=== PATIENT | male | born 1950 | race Caucasian/White ===

== ENCOUNTER 2017-01-20 16:02 | Emergency (ER) | payer MEDICAID ==
[2017-01-20 16:08] VITALS: RESP 16; TEMP 98.2
--- NOTE | 2017-01-20 16:42 | EDPHY ---
H & P Time Seen by Provider: 01/20/17 16:27 HPI/ROS: Chief complaint. Needs blood test HPI. 66-year-old male with history of bipolar illness sent here by [facility] for medical clearance. He has been evaluated by [facility] and they want to admit him to [facility]. However patient needed blood work and urine tox screen. Patient denies suicide ideation or homicide ideation. He lives at [facility]. He denies fever, cough, shortness of breath, chest discomfort, vomiting or diarrhea. Apparently [facility] feels that the patient is gravely disabled. He was apparently unable to urinate at [facility] and tells me that he has not been drinking fluids for the last day or 2. ROS Constitutional. no fever/chills, no weakness Eyes. no problems with vision ENT. no sore throat, no nasal drainage Cardiovascular. no chest pain Respiratory. no shortness of breath, no cough Abdominal. no abdominal pain, no nausea/vomiting, no diarrhea . no problems urinating MS. no calf pain/swelling, no neck/back pain, no joint pain Skin. no rash Lymph. no swollen glands Neuro. no headache, no dizziness, no difficulty walking or with speech Past Medical/Surgical History: Bipolar illness Social History: Single, nonsmoker, no alcohol Smoking Status: Former smoker Physical Exam: General Appearance: Alert well-developed male no distress vital signs are stable Eyes: Pupils equal and round no pallor or injection. ENT, Mouth: Mucous membranes are moist. Respiratory: There are no retractions, lungs are clear to auscultation. Cardiovascular: Regular rate and rhythm. Gastrointestinal: Abdomen is soft and nontender, no masses, bowel sounds normal. Neurological: Awake and alert, sensory and motor exams grossly normal. Skin: Warm and dry, no rashes. Musculoskeletal: Neck is supple nontender. Extremities symmetrical, full range of motion. Psychiatric: Patient is oriented X 3, there is no agitation. Constitutional: Initial Vital Signs Temperature (C) 36.8 C 01/20/17 16:05 Heart Rate 67 01/20/17 16:05 Respiratory Rate 16 01/20/17 16:05 Blood Pressure 109/87 H 01/20/17 16:05 O2 Sat (%) 98 01/20/17 16:05 O2 Delivery Mode Room Air Allergies/Adverse Reactions: Penicillins Allergy (Verified 06/12/16 09:26) Home Medications: Medication Instructions Recorded Cyanocobalamin [Vitamin B12 1,000 mcg IM Q30D 06/12/16 1000MCG/ML (*)] OLANZapine [Zyprexa] 15 mg PO HS 06/12/16 QUEtiapine FUMARATE [Seroquel 100 100 mg PO HS #0 tab 06/17/16 mg (*)] Medical Decision Making ED Course/Re-evaluation: Re-evaluation at 7:30 p.m.. Patient is stable. He is drinking fluids without vomiting. He is cleared medically. Patient has been accepted by [facility] for admission to [facility]. He will go by [facility]. Differential Diagnosis: I think the elevated BUN is secondary to him not drinking fluids. He has a normal creatinine and I do not think he has acute renal failure. He is gravely disabled and will require admission - Data Points Laboratory Results: Laboratory Results 01/20/17 16:45 01/20/17 16:45 01/20/17 01/20/17 01/20/17 18:40 16:45 16:45 WBC 4.41 10^3/uL 10^3/uL (3.80-9.50) RBC 4.81 10^6/uL 10^6/uL (4.40-6.38) Hgb 14.4 g/dL g/dL (13.7-17.5) Hct 43.9 % % (40.0-51.0) MCV 91.3 fL fL (81.5-99.8) MCH 29.9 pg pg (27.9-34.1) MCHC 32.8 g/dL g/dL (32.4-36.7) RDW 14.8 % % (11.5-15.2) Plt Count 166 10^3/uL 10^3/uL (150-400) MPV 11.3 fL fL (8.7-11.7) Neut % (Auto) 67.5 % % (39.3-74.2) Lymph % (Auto) 24.3 % % (15.0-45.0) Rich % (Auto) 7.5 % % (4.5-13.0) Eos % (Auto) 0.0 % L % (0.6-7.6) Baso % (Auto) 0.5 % % (0.3-1.7) Nucleat RBC Rel Count 0.0 % % (0.0-0.2) Absolute Neuts (auto) 2.98 10^3/uL 10^3/uL (1.70-6.50) Absolute Lymphs (auto) 1.07 10^3/uL 10^3/uL (1.00-3.00) Absolute Monos (auto) 0.33 10^3/uL 10^3/uL (0.30-0.80) Absolute Eos (auto) 0.00 10^3/uL L 10^3/uL (0.03-0.40) Absolute Basos (auto) 0.02 10^3/uL 10^3/uL (0.02-0.10) Absolute Nucleated RBC 0.00 10^3/uL 10^3/uL (0-0.01) Immature Gran % 0.2 % % (0.0-1.1) Immature Gran # 0.01 10^3/uL 10^3/uL (0.00-0.10) Sodium 144 mEq/L mEq/L (134-144) Potassium 4.1 mEq/L mEq/L (3.5-5.2) Chloride 107 mEq/L mEq/L (97-110) Carbon Dioxide 24 mEq/l mEq/l (22-31) Anion Gap 13 mEq/L mEq/L (8-16) BUN 48 mg/dL H mg/dL (7-23) Creatinine 1.3 mg/dL mg/dL (0.7-1.3) Estimated GFR 56 Glucose 97 mg/dL mg/dL (70-100) Calcium 10.2 mg/dL mg/dL (8.5-10.4) Urine Opiates Screen NEGATIVE (NEGATIVE) Acetaminophen < 10 mcg/mL L mcg/mL (10.0-30.0) Urine Barbiturates NEGATIVE (NEGATIVE) Ur Phencyclidine Scrn NEGATIVE (NEGATIVE) Ur Amphetamine Screen NEGATIVE (NEGATIVE) U Benzodiazepines Scrn NEGATIVE (NEGATIVE) Urine Cocaine Screen NEGATIVE (NEGATIVE) U Marijuana (THC) Screen NEGATIVE (NEGATIVE) Ethyl Alcohol < 10 mg/dL mg/dL (0-10) Medications Given: Discontinued Medications Sodium Chloride (Ns) 1,000 mls @ 0 mls/hr IV ONCE ONE PRN Reason: Wide Open Stop: 01/20/17 17:30 Last Admin: 01/20/17 17:30 Dose: 1,000 mls Departure - Departure Disposition: Home, Routine, Self-Care Clinical Impression: Gravely disabled Condition: Fair Instructions: Dehydration (ED) Additional Instructions: Drink plenty of fluids and stay hydrated. Go to [facility] by taxi without fail. Return for any worsening symptoms Recheck by Dr. Arias in 2-3 days for repeat blood evaluation for dehydration Referrals: Morales Arias MD [Primary Care Provider] - 2-3 days, call for appt.
[2017-01-20 17:10] LABS: % IMMATURE GRANULYOCYTES 0.2 % (0.0-1.1); ABSOLUTE IMMATURE GRANULOCYTES 0.01 10^3/uL (0.00-0.10); ADD DIFF? NO; ADD MORPH? NO; ADD SCAN? NO; ANION GAP 13 mEq/L (8-16); ATYPICAL LYMPHOCYTE FLAG 20 (0-99); CALCIUM 10.2 mg/dL (8.5-10.4); CARBON DIOXIDE 24 mEq/l (22-31); CHLORIDE 107 mEq/L (97-110); CREATININE 1.3 mg/dL (0.7-1.3); ETHANOL SERUM < 10 mg/dL (0-10); FRAGMENT RBC FLAG 0 (0-99); GLOMERULAR FILTRATION RATE 56; GLUCOSE 97 mg/dL (70-100); HEMATOCRIT 43.9 % (40.0-51.0); HEMOGLOBIN 14.4 g/dL (13.7-17.5); LEFT SHIFT FLG 0 (0-99); LIPEMIA HEMOLYSIS FLAG 80 (0-99); MEAN CELL HEMOGLOBIN 29.9 pg (27.9-34.1); MEAN CELL HEMOGLOBIN CONCENTR. 32.8 g/dL (32.4-36.7); MEAN CELL VOLUME 91.3 fL (81.5-99.8); MEAN PLATELET VOLUME 11.3 fL (8.7-11.7); PLATELET CLUMPS FLAG 0 (0-99); PLATELET COUNT 166 10^3/uL (150-400); POTASSIUM 4.1 mEq/L (3.5-5.2); RED BLOOD CELL COUNT 4.81 10^6/uL (4.40-6.38); RED CELL DISTRIBUTION WIDTH 14.8 % (11.5-15.2); SODIUM 144 mEq/L (134-144)
[2017-01-20] MEDS ORDERED: NS 1,000 ML IV ONE (17:29)
[2017-01-20 20:19] VITALS: BP 112/71; PULSE 74; O2SAT 96
== END 2017-01-20 20:19 | disposition home or self-care (01) ==
DX: F79 Unspecified intellectual disabilities (principal); Z87.891 Personal history of nicotine dependence
CPT/HCPCS: 80305; G0480

== ENCOUNTER 2017-03-11 23:48 | Emergency (ER) | payer MEDICAID ==
[2017-03-12] MEDS ORDERED: fentaNYL 100 MCG/2 ML INJ IVP ONE (00:07)
[2017-03-12 00:21] LABS: % IMMATURE GRANULYOCYTES 0.2 % (0.0-1.1); ABSOLUTE IMMATURE GRANULOCYTES 0.01 10^3/uL (0.00-0.10); ADD DIFF? NO; ADD MORPH? NO; ADD SCAN? NO; ATYPICAL LYMPHOCYTE FLAG 20 (0-99); FRAGMENT RBC FLAG 10 (0-99); HEMATOCRIT 35.6 % (40.0-51.0); HEMOGLOBIN 11.8 g/dL (13.7-17.5); LEFT SHIFT FLG 0 (0-99); LIPEMIA HEMOLYSIS FLAG 80 (0-99); MEAN CELL HEMOGLOBIN 30.2 pg (27.9-34.1); MEAN CELL HEMOGLOBIN CONCENTR. 33.1 g/dL (32.4-36.7); MEAN PLATELET VOLUME 12.3 fL (8.7-11.7); PLATELET CLUMPS FLAG 70 (0-99); PLATELET COUNT 192 10^3/uL (150-400); RED BLOOD CELL COUNT 3.91 10^6/uL (4.40-6.38); RED CELL DISTRIBUTION WIDTH 13.7 % (11.5-15.2)
[2017-03-12 00:24] VITALS: RESP 16; TEMP 96.8
[2017-03-12] MEDS ORDERED: IOPAMIDOL (ISOVUE-300) 100 ML BTL ONE (00:33)
[2017-03-12 00:38] LABS: ALANINE AMINOTRANSFERASE 27 IU/L (21-72); ALBUMIN 3.8 g/dL (3.5-5.0); ALKALINE PHOSPHATASE 59 IU/L (38-126); ANION GAP 11 mEq/L (8-16); ASPARTATE AMINOTRANSFERASE 18 IU/L (17-59); BILIRUBIN,TOTAL 0.4 mg/dL (0.1-1.4); BILIRUBIN-CONJUGATED 0.2 mg/dL (0.0-0.5); BILIRUBIN-UNCONJUGATED 0.2 mg/dL (0.0-1.1); CALCIUM 10.4 mg/dL (8.5-10.4); CARBON DIOXIDE 23 mEq/l (22-31); CHLORIDE 107 mEq/L (97-110); CREATININE 1.6 mg/dL (0.7-1.3); GLOMERULAR FILTRATION RATE 44; GLUCOSE 84 mg/dL (70-100); POTASSIUM 4.2 mEq/L (3.5-5.2); SODIUM 141 mEq/L (134-144); TOTAL PROTEIN 6.8 g/dL (6.3-8.2)
--- NOTE | 2017-03-12 02:25 | EDPHY ---
H & P Stated Complaint: BIBA for abd pain, from [facility]. living Time Seen by Provider: 03/11/17 23:53 HPI/ROS: Chief Complaint: Abdominal pain HPI: 66-year-old male with past medical history of chronic renal insufficiency , schizoaffective disorder presenting from assisted living environment complaining of abdominal pain which began worsening this evening. No nausea or vomiting. No diarrhea. Has had some constipation. No fever or chills. No urinary symptoms. No chest pain or shortness of breath. Pain is about a 5/10. There are no aggravating or alleviating factors. ROS: 10 point Review of Systems is negative except as noted in the HPI. PMH: Chronic renal insufficiency, schizoaffective disorder Social History: No smoking, no alcohol, no recreational drug use Family History: non-contributory Physical Exam: Gen: Awake, Alert, No Distress HEENT: Nose: no rhinorrhea Eyes: PERRLA, EOMI Mouth: Moist mucosa Neck: Supple, no JVD Chest: nontender, lungs clear to auscultation Heart: S1, S2 normal, no murmur Abd: Soft, moderate left lower quadrant tenderness without rebound or guarding Back: no CVA tenderness, no midline tenderness Ext: no edema, non-tender Skin: no rash Neuro: CN II-XII intact, Sensation grossly intact, Strength 5/5 in bilateral upper and lower extremities - Personal History Current Tetanus/Diphtheria Vaccine: Unsure Current Tetanus Diphtheria and Acellular Pertussis (TDAP): Unsure - Medical/Surgical History Hx Asthma: No Hx Chronic Respiratory Disease: No Hx Diabetes: No Hx Cardiac Disease: No Hx Renal Disease: No Hx Cirrhosis: No Hx Alcoholism: No Hx HIV/AIDS: No Hx Splenectomy or Spleen Trauma: No Other PMH: bipolar, chronic kidney disease, B12 deficiency anemia, BPH - Social History Smoking Status: Former smoker Constitutional: Initial Vital Signs Temperature (C) 36.0 C 03/12/17 00:20 Heart Rate 55 L 03/12/17 00:20 Respiratory Rate 16 03/12/17 00:20 Blood Pressure 134/79 H 03/12/17 00:20 O2 Sat (%) 94 03/12/17 00:20 O2 Delivery Mode Room Air Allergies/Adverse Reactions: Penicillins Allergy (Verified 03/12/17 00:11) Home Medications: Medication Instructions Recorded Cyanocobalamin [Vitamin B12 1,000 mcg IM Q30D 06/12/16 1000MCG/ML (*)] OLANZapine [Zyprexa] 15 mg PO HS 06/12/16 QUEtiapine FUMARATE [Seroquel 100 100 mg PO HS #0 tab 06/17/16 mg (*)] Miralax 17 gm (*) 03/12/17 Proscar 5 MG (*) 03/12/17 Medical Decision Making - Diagnostics Imaging Results: CT scan of the abdomen pelvis shows severe constipation with distended rectum with a small amount of free fluid. Interpreted by Dr. Burgess. Imaging: Discussed imaging studies w/ automotive title clerk Radiologist ED Course/Re-evaluation: 66-year-old male presenting with abdominal pain he has got likely fecal impaction with a distended rectum. White count is normal. He does have his chronic renal insufficiency but no other acute changes. Is patient has had a [employer] soapsuds enema with large stool. This relieved his presenting complaint. Is otherwise well-appearing. Will discharge back to his residence with instructions follow up with primary care physician. - Data Points Laboratory Results: Laboratory Results 03/12/17 00:08 03/12/17 00:08 03/12/17 03/12/17 00:08 00:08 WBC 5.40 10^3/uL 10^3/uL (3.80-9.50) RBC 3.91 10^6/uL L 10^6/uL (4.40-6.38) Hgb 11.8 g/dL L g/dL (13.7-17.5) Hct 35.6 % L % (40.0-51.0) MCV 91.0 fL fL (81.5-99.8) MCH 30.2 pg pg (27.9-34.1) MCHC 33.1 g/dL g/dL (32.4-36.7) RDW 13.7 % % (11.5-15.2) Plt Count 192 10^3/uL 10^3/uL (150-400) MPV 12.3 fL H fL (8.7-11.7) Neut % (Auto) 49.1 % % (39.3-74.2) Lymph % (Auto) 41.1 % % (15.0-45.0) [place] % (Auto) 8.7 % % (4.5-13.0) Eos % (Auto) 0.2 % L % (0.6-7.6) Baso % (Auto) 0.7 % % (0.3-1.7) Nucleat RBC Rel Count 0.0 % % (0.0-0.2) Absolute Neuts (auto) 2.65 10^3/uL 10^3/uL (1.70-6.50) Absolute Lymphs (auto) 2.22 10^3/uL 10^3/uL (1.00-3.00) Absolute Monos (auto) 0.47 10^3/uL 10^3/uL (0.30-0.80) Absolute Eos (auto) 0.01 10^3/uL L 10^3/uL (0.03-0.40) Absolute Basos (auto) 0.04 10^3/uL 10^3/uL (0.02-0.10) Absolute Nucleated RBC 0.00 10^3/uL 10^3/uL (0-0.01) Immature Gran % 0.2 % % (0.0-1.1) Immature Gran # 0.01 10^3/uL 10^3/uL (0.00-0.10) Sodium 141 mEq/L mEq/L (134-144) Potassium 4.2 mEq/L mEq/L (3.5-5.2) Chloride 107 mEq/L mEq/L (97-110) Carbon Dioxide 23 mEq/l mEq/l (22-31) Anion Gap 11 mEq/L mEq/L (8-16) BUN 41 mg/dL H mg/dL (7-23) Creatinine 1.6 mg/dL H mg/dL (0.7-1.3) Estimated GFR 44 Glucose 84 mg/dL mg/dL (70-100) Calcium 10.4 mg/dL mg/dL (8.5-10.4) Total Bilirubin 0.4 mg/dL mg/dL (0.1-1.4) Conjugated Bilirubin 0.2 mg/dL mg/dL (0.0-0.5) Unconjugated Bilirubin 0.2 mg/dL mg/dL (0.0-1.1) AST 18 IU/L IU/L (17-59) ALT 27 IU/L IU/L (21-72) Alkaline Phosphatase 59 IU/L IU/L (38-126) Total Protein 6.8 g/dL g/dL (6.3-8.2) Albumin 3.8 g/dL g/dL (3.5-5.0) Lipase 94.0 IU/L IU/L (23-300) Departure - Departure Disposition: Home, Routine, Self-Care Clinical Impression: Constipation Condition: Good Instructions: Constipation (ED) Additional Instructions: Follow up with primary care physician in 2-3 days for re-evaluation. Return to the emergency department for increasing abdominal pain, fevers, chills , nausea, vomiting, or any other concerns. Referrals: Morales Arias MD [Primary Care Provider] - As per Instructions
[2017-03-12 02:57] VITALS: BP 116/76; PULSE 53; O2SAT 97
== END 2017-03-12 03:11 | disposition home or self-care (01) ==
LOC: EDUNIT#
DX: K59.00 Constipation, unspecified (principal); Z87.891 Personal history of nicotine dependence
CPT/HCPCS: Q9967

== ENCOUNTER 2017-03-27 08:32 | Day surgery (SDC) | payer MEDICAID ==
[2017-03-27] MEDS ORDERED: LIDOCAINE 1% 2 ML INJ ID PRN (09:15)
[2017-03-27] MEDS ORDERED: LR 1,000 ML IV ONE (09:15)
[2017-03-27] MEDS ORDERED: NS 1,000 ML IV ONE (09:27)
[2017-03-27 09:38] VITALS: PULSE 63
--- NOTE | 2017-03-27 10:00 | PDGENHP ---
History & Physical Chief Complaint: hx of polyps History of Present Illness: hx polyps Pertinent Past, Social, Family History: reviewed Relevant Physical Exam: nad Cardiorespiratory Assessment: rrr. ctab
[2017-03-27] MEDS ORDERED: ONDANSETRON 4 MG/2 ML VIAL IVP PRN (10:24)
[2017-03-27] MEDS ORDERED: ACETAMINOPHEN 500 MG TAB PO PRN (10:24)
[2017-03-27] MEDS ORDERED: fentaNYL 100 MCG/2 ML INJ IVP PRN (10:24)
[2017-03-27] MEDS ORDERED: NALOXONE HCL 0.4 MG/ML INJ IVP PRN (10:24)
--- NOTE | 2017-03-27 10:29 | PDANEPAE ---
ANE History of Present Illness Colonoscopy ANE Past Medical History - Cardiovascular History Hx Hypertension: No Hx Arrhythmias: No Hx Chest Pain: No Hx Coronary Artery / Peripheral Vascular Disease: No Hx CHF / Valvular Disease: No Hx Palpitations: No - Pulmonary History Hx COPD: No Hx Asthma/Reactive Airway Disease: No Hx Recent Upper Respiratory Infection: No Hx Oxygen in Use at Home: No Hx Sleep Apnea: No - Neurologic History Hx Cerebrovascular Accident: No Hx Seizures: No Hx Dementia: Yes Neurologic History Comment: PRE DIAGNOSIS - Endocrine History Hx Diabetes: No - Renal History Hx Renal Disorders: Yes - Liver History Hx Hepatic Disorders: No - Neurological & Psychiatric Hx Hx Neurological and Psychiatric Disorders: Yes Neurological / Psychiatric History Comment: BIPOLAR - Cancer History Hx Cancer: No - Congenital Disorder History Hx Congenital Disorders: No - GI History Hx Gastrointestinal Disorders: Yes Gastrointestinal History Comment: SEVERE CONSTIPATED - Chronic Pain History Chronic Pain: No ANE Review of Systems Review of systems is: negative - Exercise capacity METS (RN): 1 METS ANE Patient History - Allergies Allergies/Adverse Reactions: Penicillins Allergy (Verified 03/12/17 00:11) - Home Medications Home Medications: Cyanocobalamin [Vitamin B12 1000MCG/ML (*)] 1,000 mcg IM Q30D 06/12/16 [Last Taken Unknown] OLANZapine [Zyprexa] 15 mg PO HS 06/12/16 [Last Taken 03/26/17] Miralax 17 gm (*) 03/12/17 [Last Taken 03/22/17] Proscar 5 MG (*) 03/12/17 [Last Taken 03/26/17] - NPO status NPO Since - Liquids (Date): 03/27/17 NPO Since - Liquids (Time): 22:00 NPO Since - Solids (Date): 03/26/17 NPO Since - Solids (Time): 08:00 - Smoking Hx Smoking Status: Former smoker ANE Labs/Vital Signs - Vital Signs Blood Pressure: 118/78 Heart Rate: 63 Respiratory Rate: 18 O2 Sat (%): 97 Height: 177.8 cm Weight: 49.895 kg ANE Physical Exam - Airway Neck exam: FROM Mallampati Score: Class 2 Mouth exam: normal dental/mouth exam - Pulmonary Pulmonary: clear to auscultation - Cardiovascular Cardiovascular: regular rate and rhythym - ASA Status ASA Status: II ANE Anesthesia Plan Anesthesia Plan: GA with mask
[2017-03-27] MEDS ORDERED: PROPOFOL/EMULSION 500 MG/50 ML BOTTLE IV ONE (11:21)
[2017-03-27] MEDS ORDERED: LIDOCAINE 2% 5 ML SDV ONE (11:21)
[2017-03-27] MEDS ORDERED: epHEDrine SULFATE 10 MG/ML SYR ONE ×2 (11:43)
[2017-03-27 12:32] VITALS: TEMP 97.5
[2017-03-27 12:33] VITALS: RESP 16
--- NOTE | 2017-03-27 12:53 | GPN ---
[f rep st] PROCEDURE NOTE DATE OF PROCEDURE: 03/27/2017 PROCEDURE: Colonoscopy. INDICATION: Personal history of polyps and lower abdominal pain and feeling of tightness. CONSENT: Informed consent obtained from the patient prior to the procedure after an explanation of risks, benefits, and alternatives. MEDICATIONS GIVEN: Propofol per Anesthesia. DESCRIPTION OF EXAM: After adequate sedation was achieved, the scope was advanced through the anal orifice and as far as the cecum and terminal ilium. The patient tolerated the procedure well. View s were good. Prep was good. DIFFICULTY OF PROCEDURE: Not difficult. ESTIMATED BLOOD LOSS: None. COMPLICATIONS: None. FINDINGS: 1. Normal colon with no significant pathology throughout the colon. No polyps were seen on careful exam including retroflexion in the ascending colon and the rectum. Next. 2. The terminal ileum was normal. 3. Normal colonoscopy along with normal views of the distal ilium. RECOMMENDATIONS: 1. Repeat colonoscopy in 5 years given history of adenomatous polyp in 2007. 2. Follow up with primary care provider regarding abdominal pain. Copy requested to: Eleuterio Dumont MD [facility] /[id number]/MODL
[2017-03-27 13:35] VITALS: O2SAT 99
[2017-03-27 13:37] VITALS: BP 105/74
== END 2017-03-27 13:40 | disposition home or self-care (01) ==
LOC: FSGY 08:32
PROVIDERS: ATTEND Internal Medicine
PROC: 0DJD8ZZ Inspection of Lower Intestinal Tract, Via Natural or Artificial Opening Endoscopic (ICD-10-PCS; principal; 2017-03-27 10:00)
DX: R10.30 Lower abdominal pain, unspecified (principal); Z86.010 Personal history of colon polyps
CPT/HCPCS: J2704